=== PATIENT | female | born 1975 | race Caucasian/White ===

== ENCOUNTER → 2021-09-13 | Outpatient (CLI) | payer OTHER ==
[~2021-09-13] MED LIST: IBUP800 PO; PREN-16 PO; Percocet 5-3251 EACH PO; Prednisone20 MG PO; Valium5 MG PO
[2021-09-13 20:12] LABS: Microalbumin, Urine Quant. 13.1 mg/L (0.000-20.000)
== END | disposition home or self-care (01) ==
LOC: PLD 09:36 → LAB SHORT 09:36
PROVIDERS: Internal Medicine Nephrology
DX: N18.2 Chronic kidney disease, stage 2 (mild) (principal); D63.1 Anemia in chronic kidney disease; N25.81 Secondary hyperparathyroidism of renal origin; E78.00 Pure hypercholesterolemia, unspecified; D52.8 Other folate deficiency anemias; D50.9 Iron deficiency anemia, unspecified; D51.8 Other vitamin B12 deficiency anemias; R76.9 Abnormal immunological finding in serum, unspecified; R94.5 Abnormal results of liver function studies; R94.6 Abnormal results of thyroid function studies
CPT/HCPCS: 82043; 82570; 84156

== ENCOUNTER → 2022-04-11 | Outpatient (CLI) | payer OTHER | END | disposition home or self-care (01) | LOC: LAB SHORT 11:49 → LAB 11:49 | DX: N12 Tubulo-interstitial nephritis, not specified as acute or chronic (principal) | CPT/HCPCS: 87077; 87086; 87186 ==